=== PATIENT | male | born 1995 | race Caucasian/White ===

== ENCOUNTER 2025-03-07 22:14 | Emergency (ER) | payer MEDICAID ==
[~2025-03-07] VITALS: Ht 170.2 cm; Wt 69.0 kg
[2025-03-07 22:47] VITALS: O2SAT 98
[2025-03-07 23:28] LABS: BASOPHILS % 0.5 % (0.0-2.0); EOSINOPHILS % 6.6 % (0.0-5.0); HEMATOCRIT. 43.7 % (42.0-52.0); HEMOGLOBIN. 15.0 g/dL (14.0-18.0); LYMPHOCYTES % 38.0 % (20.0-50.0); MEAN PLATELET VOLUME 6.9 fl (7.4-10.4); MONOCYTES % 8.9 % (2.0-8.0); NEUTROPHILS % 46.0 % (40.0-76.0); PLATELET 311 x1000/uL (130-400); RED BLOOD CELL COUNT 5.17 mill/uL (4.7-6.1); RED CELL DISTRIBUTION WIDTH 12.8 % (11.6-14.6)
[2025-03-07 23:29] LABS: CREATININE 1.1 mg/dL (0.6-1.3)
[2025-03-07 23:30] LABS: UREA NITROGEN BLOOD 13 mg/dL (9-23)
[2025-03-07 23:31] LABS: ASPARTATE AMINOTRANSFERASE 20 IU/L (<34)
[2025-03-07 23:32] LABS: BILIRUBIN DIRECT 0.1 mg/dL (<=3.0); BILIRUBIN TOTAL 0.4 mg/dL (0.1-1.0); PROTEIN TOTAL 7.2 g/dL (6.0-8.3)
[2025-03-07 23:50] LABS: CLARITY URINE CLEAR (CLEAR); COLOR URINE YELLOW (YELLOW); GLUCOSE URINE NEGATIVE (NEGATIVE); KETONES URINE TRACE (NEGATIVE); LEUKOCYTE ESTERASE URINE NEGATIVE (NEGATIVE); NITRITE URINE NEGATIVE (NEGATIVE); OCCULT BLOOD URINE NEGATIVE (NEGATIVE); PH URINE 6.0 (4.5-8.0); PROTEIN URINE NEGATIVE (NEGATIVE); SPECIFIC GRAVITY URINE 1.029 (1.005-1.030); UROBILINOGEN URINE 1.0 E.U./dL (0.2-1.0)
[2025-03-08 01:27] VITALS: BP 119/67; PULSE 61; RESP 18; TEMP 36.8; O2SAT 98
[2025-03-08] MEDS ORDERED: MAGNESIUM/ALUMINUM HYDROXIDE/SIMETHICONE 30ML UDC PO ONE (04:00)
[2025-03-08] MEDS ORDERED: KETOROLAC 30MG/ML VIAL IM ONE (04:00)
[2025-03-08] MEDS ORDERED: BELLADONNA ALK/PHENOBARB 16.2MG/5ML ORAL SYR PO ONE (04:00)
== END 2025-03-08 03:40 | disposition left against medical advice (07) ==
LOC: ER 22:14
DX: K82.4 Cholesterolosis of gallbladder (principal); R10.11 Right upper quadrant pain; J45.909 Unspecified asthma, uncomplicated; F10.90 Alcohol use, unspecified, uncomplicated; Z87.891 Personal history of nicotine dependence; Z92.3 Personal history of irradiation; Y90.9 Presence of alcohol in blood, level not specified
CPT/HCPCS: 36415; 71045; 76705; 80048; 80076; 81003; 85025; 93005; 99285